=== PATIENT | male | born 1985 | race Caucasian/White ===

== ENCOUNTER 2017-01-24 15:00 | Emergency (ER) | payer MEDICAID, OTHER ==
[~2017-01-24] VITALS: Ht 165.1 cm; Wt 79.0 kg
[2017-01-24 15:02] VITALS: Ht 165.1 cm; Wt 79.0 kg
[2017-01-24] MEDS ORDERED: IBUPROFEN 800 MG TAB PO ONE (16:00)
--- NOTE | 2017-01-24 16:20 | RADRPT ---
PROCEDURE: XR Ankle. CLINICAL INDICATION: Pain TECHNIQUE: AP, oblique and lateral views of the right ankle were performed. COMPARISON: None. FINDINGS: There is normal mineralization and alignment. No acute fracture or osseous lesion is identified. The joints are normal. The soft tissues are unremarkable. IMPRESSION: Unremarkable right ankle. RPTAT: EE Physician Valente Date Time Electronically viewed and signed by Akash Rankin Physician on 01/24/2017 16:20 RA/
[2017-01-24] MEDS ORDERED: NAPR-688 PO (18:21)
[2017-01-24 18:35] VITALS: BP 166/91; PULSE 73; RESP 18; TEMP 98.7
--- NOTE | 2017-01-24 18:49 | ERD ---
ER Documentation Chief Complaint Date/Time DATE: 01/24/17 TIME: 18:28 Chief Complaint TWISTED HIS RIGHT ANKLE HPI This 31-year-old male presents for twisting his right ankle today . He has pain along the medial portion of his ankle. 2 weeks ago he had twisted it as well and had some pain that was resolving. When he was at work and twisted it again he wanted to get it checked out. He is ambulatory but does have some pain. No other injuries ROS All systems reviewed and are negative except as per history of present illness. Medications Home Meds Active Scripts Naproxen* (Naproxen*) 500 Mg Tablet, 500 MG PO BID Y for PAIN, #20 TAB Prov:PACO COLLINS DO 01/24/17 PMhx/Soc Medical and Surgical Hx: pt denies Medical Hx, pt denies Surgical Hx Hx Alcohol Use: No Hx Substance Use: No Hx Tobacco Use: No Smoking Status: Never smoker Physical Exam Vitals Vital Signs Date Time Temp Pulse Resp B/P Pulse Ox O2 Delivery O2 Flow Rate FiO2 01/24/17 15:02 97.3 89 18 155/88 94 Physical Exam Const: [] No distress Head: Atraumatic Ext: No cyanosis, very mild edema just under the medial malleolus, tenderness under the medial malleolus consistent with median ligament strain, no foot bone tenderness, no knee problems. Distal pulses and capillary refill intact bilateral lower extremities. Neur: Awake and alert and oriented 3, no focal deficits Psych: Normal Mood and Affect Results 24 hrs Current Medications Medications (Trade) Dose Ordered Sig/Rambo Route PRN Reason Start Time Stop Time Status Last Admin Dose Admin Ibuprofen (Motrin) 800 mg ONCE ONCE PO 01/24/17 16:00 01/24/17 16:01 DC 01/24/17 15:51 Procedures/MDM Right ankle sprain and 31-year-old male. This is a re-sprain of a prior sprain. Patient was given an Master wrap as well as 100 mg ibuprofen and crutches were provided as the patient preferred to have some crutches to not have to put his weight on his ankle too often although he is ambulatory in the emergency room. Giving him primary care follow-up in orthopedic follow-up through his primary care doctor as needed. X-ray interpretation right ankle: I see no fracture dislocation or subluxation. Normal ankle x-ray. Departure Diagnosis: Primary Impression: Right ankle sprain Condition: Stable Patient Instructions: Treating Ankle Sprains Referrals: [facility] YOU HAVE RECEIVED A MEDICAL SCREENING EXAM AND THE RESULTS INDICATE THAT YOU DO NOT HAVE A CONDITION THAT REQUIRES URGENT TREATMENT IN THE EMERGENCY DEPARTMENT. FURTHER EVALUATION AND TREATMENT OF YOUR CONDITION CAN WAIT UNTIL YOU ARE SEEN IN YOUR DOCTORS OFFICE WITHIN THE NEXT 1-2 DAYS. IT IS YOUR RESPONSIBILITY TO MAKE AN APPOINTMENT FOR FOLOW-UP CARE. IF YOU HAVE A PRIMARY DOCTOR --you should call your primary doctor and schedule an appointment IF YOU DO NOT HAVE A PRIMARY DOCTOR YOU CAN CALL OUR PHYSICIAN REFERRAL HOTLINE AT IF YOU CAN NOT AFFORD TO SEE A PHYSICIAN YOU CAN CHOSE FROM THE FOLLOWING [facility] [address] [facility]. [facility] [address] [facility] [facility] [address] [facility] [facility] [address] [facility]. [facility] [address] [facility]. [facility]. [address] Additional Instructions: Call your primary care doctor TOMORROW for an appointment during the next 2-3 days. If pain continues obtain a referral for an orthopedist. See the doctor sooner or return here if your condition worsens before your appointment time. PACO COLLINS DO Jan 24, 2017 18:38
== END 2017-01-24 18:37 | disposition home or self-care (01) ==
LOC: FTE 15:00
DX: S93.401A Sprain of unspecified ligament of right ankle, initial encounter (principal); X50.1XXA Overexertion from prolonged static or awkward postures, initial encounter; Y92.89 Other specified places as the place of occurrence of the external cause
CPT/HCPCS: 73610; Z7502; Z7610